=== PATIENT | female | born 2005 | race Caucasian/White ===

== ENCOUNTER 2025-10-19 02:49 | Emergency (ER) | payer BC, MEDICAID ==
[2025-10-19 03:13] LABS: Glucose, Urine (Dipstick) Normal (Negative); Leukocyte 25 (Negative); Pregnancy Test - Urine (BHCG) Negative (Negative); Pregu Control Background? CLEAR/WHITE (CLR/WHITE); Pregu Control Bar Appear? YES (CONTROL BAR); Protein, Urine (Dipstick) 30 mg/dl (Neg-Trace); Specific Gravity, Urine 1.025 (1.005-1.030)
[2025-10-19 03:22] LABS: CAUTI Indications for Culture Dysuria,urgency,freq; Mucous/LPF 4+ LPF (<2+); RBC/HPF None Seen HPF (0-3); WBC/HPF 0-3 HPF (0-3)
[2025-10-19 03:23] LABS: Bacteria/HPF 2+ HPF (None Seen)
[2025-10-19 03:24] LABS: Urine Culture Reflex No No
[2025-10-19] MEDS ORDERED: Ketorolac Tromethamine 30 MG (1 mL) VIAL ONE (03:43)
[2025-10-19] MEDS ORDERED: Lidocaine Viscous Sol 2% 15 ml UD Cup ONE (03:44)
[2025-10-19] MEDS ORDERED: Mag-Al 1200 mg/1200 mg/30 ML UDCUP ONE (03:44)
[2025-10-19] MEDS ORDERED: Famotidine/PF 20 mg/2ml Vial ONE (03:44)
[2025-10-19 03:53] LABS: #Basophils 0.06 10x3/uL (0.0-0.2); #Eosinophils 0.05 10x3/uL (0.0-0.5); #Monocytes 0.85 10x3/uL (0.0-1.1); #Neutrophils 6.66 10x3/uL (1.5-8.4); %Basophils 0.6 % (0.0-2.0); %Eosinophils 0.5 % (0.0-6.0); %Lymphocytes 23.4 % (18.0-47.0); %Monocytes 8.5 % (0.0-10.0); %Neutrophils 66.6 % (40.0-75.0); Hematocrit 37.3 % (34.9-44.5); Hemoglobin 12.0 g/dL (12.0-15.5); Mean Corpuscular Hemoglobin 26.5 pg (27.0-33.0); Mean Corpuscular Volume 82.3 fL (81.6-98.3); Platelet Count 442 10x3/uL (150-450); Red Blood Cell (RBC) Count 4.53 10x6/uL (3.90-5.03); White Blood Cell (WBC) Count 10.00 10x3/uL (3.5-10.5)
[2025-10-19 04:05] LABS: ALT (SGPT) 23 U/L (Less than 34); AST (SGOT) 28 U/L (11-34); Albumin 4.3 g/dL (3.1-4.5); Alkaline Phosphatase 62 U/L (40-100); Anion Gap 15 mmol/L (10-20); BUN (Urea Nitrogen) 10 mg/dL (7.0-18.7); Bilirubin, Total 0.4 mg/dL (0.3-1.2); Calc. Creatinine Clearance 0 mL/min (70-130); Calcium 9.3 mg/dL (7.8-10.44); Carbon Dioxide 19 mmol/L (22-29); Chloride 112 mmol/L (98-107); Globulin 3.2 g/dL (2.4-3.5); Glucose 103 mg/dL (70-105); Potassium 3.5 mmol/L (3.5-5.1); Sodium 142 mmol/L (136-145)
[2025-10-19 04:08] LABS: Cocaine Metabolite Screen Negative (Negative); THC/Cannabinoid Screen PRELIM POSITIVE (Negative); Tricyclic Screen Negative (Negative)
[2025-10-19 04:25] LABS: Acetaminophen Less than 10 mcg/mL (Less than 10); Lipase 24 U/L (8-78); Magnesium 1.9 mg/dL (1.7-2.2); Salicylate Less than 8.0 mg/dL (Less than 8.0)
== END 2025-10-19 03:55 | disposition home or self-care (01) ==
LOC: CSHERS 02:49
DX: R10.11 Right upper quadrant pain (principal); K29.70 Gastritis, unspecified, without bleeding; N39.0 Urinary tract infection, site not specified; E66.9 Obesity, unspecified; Z55.9 Problems related to education and literacy, unspecified
CPT/HCPCS: 76705; 80053; 80306; 80307; 81001; 81025; 83690; 83735; 85025; 93005; 96374; 96375; J1308; J1885